=== PATIENT | female | born 1995 | race Caucasian/White ===

== ENCOUNTER 2020-06-20 08:27 | Outpatient (CLI) | payer OTHER ==
[~2020-06-20 08:27] MED LIST: PANADOL CHILDRE80 MG; VIT C; [UNRECOGNIZED DRUG - OTHER]
== END 2020-06-20 09:03 | disposition home or self-care (01) ==
LOC: MAMO-SONO 08:27
PROVIDERS: ATTEND General Practice
DX: N64.4 Mastodynia (principal); N60.21 Fibroadenosis of right breast; N60.22 Fibroadenosis of left breast